=== PATIENT | female | born 1985 | race Caucasian/White ===

== ENCOUNTER → 2023-02-02 09:00 | Outpatient (BNVA) | payer BC, SELFPAY | PROVIDERS: Visit Provider Nurse Practitioner Women's Health | DX: Z12.4 Encounter for screening for malignant neoplasm of cervix (principal); N93.9 Abnormal uterine and vaginal bleeding, unspecified; Z01.419 Encounter for gynecological examination (general) (routine) without abnormal findings; N89.8 Other specified noninflammatory disorders of vagina | CPT/HCPCS: 83036; 84439; 84443; 85025; 87624 ==

== ENCOUNTER → 2023-02-10 12:13 | Outpatient (BNVA) | payer BC, SELFPAY | PROVIDERS: Visit Provider Nurse Practitioner Women's Health | DX: N93.9 Abnormal uterine and vaginal bleeding, unspecified (principal); D25.9 Leiomyoma of uterus, unspecified | CPT/HCPCS: 76830 ==

== ENCOUNTER → 2023-03-24 11:00 | Outpatient (BNVA) | payer BC, SELFPAY | PROVIDERS: Visit Provider Nurse Practitioner Women's Health | DX: N93.9 Abnormal uterine and vaginal bleeding, unspecified (principal) | CPT/HCPCS: 88305 ==

== ENCOUNTER 2023-07-22 12:44 | Outpatient (CLI) | payer BC, SELFPAY ==
--- NOTE | 2023-07-22 12:49 | MM_ITS ---
WS: [id number] BILATERAL 3D TOMOSYNTHESIS DIGITAL SCREENING MAMMOGRAPHY WITH CAD CLINICAL INFORMATION: Z12.31 - Encounter for screening mammogram for malignant ... HISTORY: Screening mammogram. No current complaints. COMPARISON: None. TECHNIQUE: Bilateral CC and MLO views. FINDINGS: The breasts are composed of heterogeneous nodular fibroglandular density tissue, which can limit the detection of small underlying mass lesions. No suspicious mass, asymmetry, calcifications, or archite ctural distortion. No evidence of malignancy. MM/[place] [id number] IMPRESSION: BI-RADS: 1-Negative FOLLOW UP: 1 Year Follow-up Recommend return to annual screening mammography.
== END 2023-07-22 12:45 | disposition home or self-care (01) ==
PROVIDERS: PCP Physician Assistant; Visit Provider Nurse Practitioner Women's Health
DX: Z12.31 Encounter for screening mammogram for malignant neoplasm of breast (principal)
CPT/HCPCS: 77063; 77067

== ENCOUNTER 2023-09-01 15:40 | Observation (INO) | payer BC, SELFPAY ==
--- NOTE | 2023-08-24 13:24 | P.ANESASSM_ITS ---
Pre-Anesthetic Assessment Height/Weight: Height 1.57 m Operation Date: 09/01/23 14:10 Proposed Procedures p Total Vaginal Hysterectomy 94830, 13400, N93.9, D25.9(Not Applicable) - Jhon Padilla MD s Sling Single Incision Sling(Not Applicable) - Jhon Padilla MD Familial anesthetic complications: none Was Beta Kolton taken within 24 hours: N/A Was Clonidine taken within 24 hours: N/A Social No alcohol and No tobacco Exam alert, oriented x 3, clear to auscultation bilaterally and regular rate & rhythm Airway Submandibular: within normal limits Cervical ROM: within normal limits Mallampati: Class II Dentition: chipped History/ROS No significant history except as noted GI Gastroesophageal Reflux Disease Anesthetic Plan ASA status: 2 Anesthesia: General Medications/Allergies Home Medications Medication Instructions Recorded Confirmed Last Taken Type estradiol 0.01% (0.1 mg/gram) 1 g vaginal .2-3 times weekly 02/02/23 08/24/23 08/17/23 Rx vaginal cream (Estrace) #42.5 grams levocetirizine 5 mg tablet (Xyzal) 5 mg PO DAILY PRN allergies 02/02/23 08/24/23 Unknown History omeprazole 40 mg capsule,delayed 40 mg PO DAILY 02/02/23 08/24/23 08/24/23 History release Allergies Allergy/AdvReac Type Severity Reaction Status Date / Time No Known Allergies Allergy Verified 08/24/23 08:43 [facility] Anesthesia Medical History Endometrial polyp causing AUB No pertinent past medical history neghx:htn,dm,thyroid,dvt/pe PCP: [facility] Surgical History H/O dilation and curettage (~2010) treatment of SAB with bleeding Uterine septum (~2009) Complete septum removed by laparosocopy-- cause of SABs. Repaired by Dr. Ambrosio at [facility] mechanical lead Umbilical hernia 2 different repairs Inguinal hernia as a child H/O tubal ligation History of hysteroscopy (~12/2019) benign polyp per patient. Performed by Dr. Renee [facility] Family History Father Hyperlipidemia Hypertension Mother Hyperlipidemia Hypertension Stroke Diabetes Grandmother Heart disease Maternal Thyroid disease Maternal Hypertension Maternal Grandfather Heart disease Maternal Denies family history of Colon cancer Ovarian cancer Breast cancer Uterine cancer Female Reproductive History Date of last menstrual period: 08/17/23 Data Anesthesia 08/24/23 13:11 08/24/23 13:11 Cardiac Studies: 2 No Data to Display
[2023-08-24 13:25] LABS: Add Urine Microscopic? NO; Charge for UA Resulting for Rev
[2023-08-24 13:28] LABS: Basophils % 0.8 %; Eosinophils % 0.6 %; Hematocrit 33.2 % (36-47); Lymphocytes % 39.1 %; Mean Corpuscular HGB Conc 30.7 g/dL (30-55); Mean Corpuscular Hemoglobin 23.5 pg (27-33); Mean Corpuscular Volume 76.5 fl (85-98); Mean Platelet Volume 9.3 fL (7.4-10.4); Monocytes # 0.4 10^3/uL (0.2-0.9); Monocytes % 7.5 %; Neutrophils # 2.67 10^3/uL (1.8-7.7); Neutrophils % 51.6 %; Nucleated Red Blood Cells % 0 %; Platelet Count 388 10^3/cmm (157-399); Red Blood Count 4.34 10^6/uL (3.85-5.65); Red Cell Distribution Width 15.3 % (12.1-15.1); White Blood Count 5.17 10^3/uL (3.29-11.43)
[2023-08-24 13:33] LABS: OR HCG Qualitative Urine Negative (Negative)
[2023-08-24 13:47] LABS: Bilirubin Urine Neg (Negative); Blood Urine Neg (Negative); Glucose Urine UA Norm (Normal); Ketones Urine Negative (Negative); Leukocyte Esterase Urine Negative (Negative); Nitrate Urine Negative (Negative); Protein Urine Neg (Negative); Specific Gravity, Urine 1.005 (1.005-1.030); Sulfosalicylic Acid Urine Negative (Negative); Urine Appearance Clear (CLEAR); Urine Color Yellow (Yellow); pH Urine 8 (5-7)
[2023-08-24 13:48] LABS: Urobilinogen Urine Neg (Negative)
[2023-08-24 13:54] LABS: Alanine Aminotransferase 15 U/L (0-33); Albumin Level 4.5 g/dL (3.5-5.2); Alkaline Phosphatase 55 U/L (35-105); Anion Gap 14.2 (5-19); Aspartate Amino Transferase 16 U/L (0-32); Blood Urea Nitrogen 6 mg/dL (6-20); Carbon Dioxide 23 mmol/L (22-29); Chloride 105 mmol/L (98-107); Globulin 2.8 g/dL (1.3-4.6); Glomerular Filtration Rate 110.7 mL/min (90-130); Glucose 101 mg/dL (65-115); Osmolality Calculated 286 mOsm/kg (285-295); Potassium 3.2 mmol/L (3.5-5.1); Sodium 139 mmol/L (136-145); Total Bilirubin 0.4 mg/dL (0.15-1.2); Total Protein 7.3 g/dL (6.6-8.7)
[2023-09-01] VITALS (17 sets, daily range): BP systolic 99–141; BP diastolic 59–91; PULSE 66–102; RESP 6–21; TEMP 36.4–36.8; O2SAT 97–100; BMI 29.2
[2023-09-01 12:29] LABS: OR HCG Qualitative Urine Negative (Negative)
--- NOTE | 2023-09-01 12:42 | P.ANESUD_ITS ---
Pre-Anesthetic Update Pre-Anesthetic Assessment: Date of Surgery/Procedure: 09/01/23 Preop Kaylen gnosis: Uterine fibroids, abnormal uterine bleeding, cystocele, stress urinary inco Proposed Procedure: Operation Date: 09/01/23 13:40 Proposed Procedures p Total Vaginal Hysterectomy 43628, 61947, N93.9, D25.9(Not Applicable) - Jhon Padilla MD s Sling Single Incision Sling(Not Applicable) - Jhon Padilla MD Any changes to Pre-Anesthetic Assessment?: No Last Intake: Intake Last Liquid Date 09/01/23 Last Liquid Time 08:00 Last Solid Date 08/31/23 Last Solid Time 19:00 Vitals: Temperature 97.8 F 09/01/23 12:21 Temperature Source Temporal Artery S can 09/01/23 12:21 Pulse Rate 92 09/01/23 12:21 Respiratory Rate 17 09/01/23 12:21 Blood Pressure 141/91 09/01/23 12:21 Blood Pressure Amy n 107 09/01/23 12:21 Oxygen Delivery Me thod Room Air 09/01/23 12:21 Cardiac Studies: No Data to Display
[2023-09-01] MEDS: sodium chloride 0.9% 500 ML IV (12:46)
[2023-09-01] MEDS: scopolamine 1.5 Patch 1 PATCH TRANSDERMA (12:49)
--- NOTE | 2023-09-01 12:56 | W.PM.OPSUD ---
Surgery/Procedure H&P Update DATE OF PROCEDURE: September 01, 2023 DATE H&P PERFORMED: 08/24/23 H&P UPDATE INFORMATION: I have reviewed H&P completed within last 30 days, I have examined patient prior to procedure and No changes to prior documentation PREOP DIAGNOSIS: Uterine fibroids, abnormal uterine bleeding, cystocele, stress urinary inco PLANNED PROCEDURE: Operation Date: 09/01/23 13:40 Proposed Procedures p Total Vaginal Hysterectomy 89051, 44051, N93.9, D25.9(Not Applicable) - Jhon Padilla MD s Sling Single Incision Sling(Not Applicable) - Jhon Padilla MD
[2023-09-01] MEDS: ceFOXitin 2,000 MG in sodium chloride 0.9% (plus) 50 ML 100 MG IV (13:03)
[2023-09-01] MEDS: sodium chloride 0.9% 1,000 ML 30 ML IV (13:13)
[2023-09-01] MEDS: lidocaine-epi 2% PF 1:200,000 20 mL SDV XX (14:50)
--- NOTE | 2023-09-01 15:38 | W.PM.BPON ---
Date of Procedure: 09/01/23 Surgeon: Jhon Padilla MD Graining Operator(s): Procedure(s) performed: Total vaginal hysterectomy, anterior colporrhaphy, mid urethral sling Findings of the procedure(s): Enlarged uterus Estimated blood loss: 250 mL Specimen(s) removed: Uterus Post-operative diagnosis: Status post TVH and anterior colporrhaphy, mid urethral sling and cystoscopy
--- NOTE | 2023-09-01 15:41 | P.OP_ITS ---
Operative Report Date of procedure: September 01, 2023 Pre-op diagnosis: Uterine fibroids Abnormal uterine bleeding Cystocele stage II Stress urinary incontinence Post-op diagnosis: same Procedure done: Total vaginal hysterectomy Anterior colporrhaphy Mid urethral sling Cystoscopy Implants: Coloplast Altis sling Specimens removed/disposition: Uterus Surgeon: Jhon Padilla MD Estimated blood loss (mL): 250 IV fluids (mL): 1,200 Urine output (mL): 100 Complications: None Procedure: After informed consent and risks, benefits, indications and alternatives reviewed with the patient was taken to the operating room. The patient was placed in dorsal lithotomy position prepped, and draped in the usual sterile fashion. The pre-procedure timeout verifying the correct patient, procedure, site and side, could not requirements was performed and acknowledge by the OR team. A Belrtán catheter was placed. A Bookwalter vaginal retractor was placed into the vagina in usual manner visualize the cervix. Cervix was grasped with a single tooth tenaculum and circumferentially infiltrated with 2% lidocaine with epinephrine. Then cervix was circumferentially incised with bovie and the bladder was dissected off the pubovesical cervical fascia anteriorly with a sponge stick and Metzenbaum scissors. The anterior peritoneal reflection was identified and the anterior cul-de-sac was entered sharply with Metzenbaum scissors. The same procedure was performed posteriorly and a posterior colpotomy was made through the posterior cul-de-sac space without difficulty and the posterior blade of the Bookwalter vaginal retractor was advanced posteriorly into the cul-de-sac. At this time, the left and right uterosacral ligaments were isolated and ligated with 0 Vicryl. The LigaSure device was placed over the uterosacral ligaments on either side and was then used in a serial fashion up through the cardinal ligaments bilaterally cross-clamped, cut, and sealed with the LigaSure device. Finally, the uterine arteries were cross-clamped, cut, sealed and ligated with the LigaSure device. Hemostasis was assured. The broad ligaments were then serially clamped, sealed and cut with the LigaSure device on both sides. Excellent hemostasis was visualized. Both cornua were clamped, sealed and cut with the LigaSure device. Then the pedicles were then suture ligated with excellent hemostasis. The uterus was excised and submitted for pathologic evaluation. No other abnormalities were noted in the pelvic cavity. The peritoneum was then closed in a pursestring fashion with 0 Vicryl suture. The vaginal cuff angles were closed with [id number] #0 Vicryl suture on both sides and transfixed with the ipsilateral cardinal and uterosacral ligaments. The remainder of the vaginal cuff was closed with #0 Vicryl in a running locked fashion. A vertical midline incision was made beneath the midurethra, nearly 1.5 cm length. Careful submucosal dissection was performed bilaterally up to the interior portion of the inferior pubic ramus. The insertion of adductor longus tendon on the patient?s pubic ramus was identified as reference land michael. Palpated the notch along the internal edge of ischiopubic ramus where the adductor longus tendon and the inferior pubic ramus meet. The Altis single inci jade sling (SIS) was selected. Then the needle of the SIS inserted aiming at the location of this notch. One of the integrated self-fixating tips place onto the needle by sliding it over the end of the needle. The needle/sling assembly was inserted toward the location of identified reference notch making sure that the flat of the handle is perpendicular to the desired path. The needle was tracked along the posterior surface of the ischiopubic ramus until the midline michael on the mesh is approximately at the midline position under the urethra. The needle was removed and the same was repeated on the contralateral side until the appropriate sling tension under the urethra was achieved ensuring that the mesh lays flat. The needle was removed and vaginal incision was closed in a running interlocking fashion with 2-0 Vicryl. The vaginal mucosa was then injected in the midline with normal saline. The vaginal mucosa was scored in the midline with the Bovie approximately 1 cm medial to the urethral meatus to 1 cm distal to the vaginal cuff. This vaginal mucosa was then undermined and then incised in the midline with the Metzenbaum scissors. The lateral aspects of the vaginal mucosa were then grasped with the Allis clamps and the vaginal mucosa was then dissected off the underlying fascia with the Metzenbaum scissors. Again, there was noted to be quite a bit of oozing at the incision, which was controlled with cautery. After adequate dissection was performed, bilaterally. Then Interrupted vertical mattress sutures of 0 Vicryl were used to elevate the cystocele superiorly. The excessive vaginal mucosa was then trimmed with the Metzenbaum scissors and the vaginal mucosa was then reapproximated in the running interlocking fashion with 2-0 Vicryl. Bludigo was given IV. At this time, instruments were removed from the vagina at hemostasis assured. Then the Beltrán catheter was removed and cystoscope was inserted. The bladder was filled with sterile water. Complete evaluation of the bladder mucosa was performed noting no lacerations, dimpling, tears, bleeding of the mucosa or muscular layers. Both ureteral orifices were identified. Prompt excretion of urine from both ureteral orifices was noted. Cystoscope was withdrawn. Beltrán catheter was then placed yielding clear zari urine. A vaginal packing with Premarin cream was placed and the patient was taken out of dorsal lithotomy position and awakened from the general anesthesia. The patient tolerated the procedure well and was taken to the PACU recovery room in a stable condition. Sponge, lap, needle and instruments counts were correct x3.
--- NOTE | 2023-09-01 16:23 | PC.NURSE ---
1624 - report called to Sherin Aguilar RN - notified RN of vaginal packing
[2023-09-01] MEDS: dextrose 5%-lactated ringers 1,000 ML 125 ML IV (17:05)
[2023-09-01] MEDS: docusate sodium 100 mg Capsule PO (17:05)
--- NOTE | 2023-09-01 18:06 | PC.NURSE ---
Pt desires meds to beds upon discharge.
--- NOTE | 2023-09-01 18:25 | ANE.PACU2 ---
Inpatient post-anesthesia follow up: Airway intact: Yes Vital signs: Temperature 97.6 F Pulse Rate 78 Respiratory Rate 16 Blood Pressure 104/66 Pulse Oximetry 97 Oxygen Delivery Me thod Room Air Oxygen Flow Rate 8 Fraction of Inspir ed Oxygen Hydration adequate: Yes Nausea and vomiting: No Pain level: 1 Mental status: Baseline
[2023-09-01] MEDS: HYDROcodone-acetaminophen 5-325 mg Tablet PO (18:26)
[2023-09-01] MEDS: ketorolac 30 mg/mL INJ IVP (18:27)
[2023-09-02] VITALS: BP 102/67; PULSE 98; RESP 16; TEMP 36.6; O2SAT 98
[2023-09-02] MEDS: HYDROcodone-acetaminophen 5-325 mg Tablet PO ×2 (00:06→11:17)
[2023-09-02] MEDS: ketorolac 30 mg/mL INJ IVP (00:07)
[2023-09-02 04:51] VITALS: BP 104/66; PULSE 78; RESP 16; TEMP 36.4; O2SAT 97
--- NOTE | 2023-09-02 05:21 | PC.NURSE ---
Vag packing removed on 09/01 @ 0500. Pt tolerated well.
[2023-09-02 05:31] LABS: Hematocrit 30.6 % (36-47); Mean Corpuscular HGB Conc 30.1 g/dL (30-55); Mean Corpuscular Hemoglobin 23.4 pg (27-33); Mean Corpuscular Volume 77.9 fl (85-98); Mean Platelet Volume 9.8 fL (7.4-10.4); Platelet Count 326 10^3/cmm (157-399); Red Blood Count 3.93 10^6/uL (3.85-5.65); Red Cell Distribution Width 15.1 % (12.1-15.1); White Blood Count 13.69 10^3/uL (3.29-11.43)
[2023-09-02 06:00] VITALS: BMI 29.2
--- NOTE | 2023-09-02 10:14 | PM.OBGYDC ---
Discharge Providers GRAVITY MANAGER Date of Admission: 09/01/23 15:40 Date of Discharge: 09/02/23 Attending Provider at Admission: Jhon Padilla MD Attending Provider at Discharge: Jhon Padilla MD Primary Care Provider: Luma Gramajo PA-C Reason for Visit Reason for Visit: D25.9, N85.2, N93.9 Hospital Course Hospital Course Mrs. garza 38-year-old female G2, P2 with a history of uterine fibroids, abnormal uterine bleeding, cystocele and stress incontinence. Admitted for planned total vaginal hysterectomy with anterior colporrhaphy and mid urethral sling. Procedures were performed without complication. Overnight observation was uneventful. She is afebrile hemodynamically stable postoperative day 1. PVR within normal limits. Tolerating diet well. Ambulating without difficulty. She was counseled regarding weight lifting restrictions of 10 pounds and pelvic rest for 6 weeks (no sex, no tampons, no vaginal douches). Return to the emergency room if any fever, increased bleeding or pain. Physical Exam Narrative: GA: Alert and oriented ?3. HEENT: WNL. Heart: Regular rate and rhythm. Lungs: Clear to auscultation bilaterally. Abdomen: Bowel sounds present, nontender, minimal tenderness, incision clean and dry, no redness, pain or edema. FOWL BLOOD TESTER: Spotting bleeding. Extremities: No edema, no cyanosis, no calves pain. Urinary Catheter Management: Beltrán: Cath Placed During This Visit: yes, but has since been removed by the nurse Reason for Continuing Indwelling Catheter: Decision to DC Catheter Urinary Catheter Date of Insertion: 09/01/23 Urinary Catheter Time of Insertion: 14:00 Date Urinary Catheter Removed: 09/02/23 Time Urinary Catheter Discontinued: 04:59 History History History 5 Term 2 0 Miscarriages/Ectopic 3 Living Children 2 Discharge Data Studies Completed and Pending Pending at discharge Category Date Time Status Pathology: Surgical [PTH] Routine Pth 09/01/23 15:04 Received Laboratory Results WBC 13.69 10^3/uL (3.29-11.43) H 09/02/23 04:56 RBC 3.93 10^6/uL (3.85-5.65) 09/02/23 04:56 Hgb 9.20 g/dL (11.27-16.99) L 09/02/23 04:56 Hct 30.6 % (36-47) L 09/02/23 04:56 MCV 77.9 fl (85-98) L 09/02/23 04:56 MCH 23.4 pg (27-33) L 09/02/23 04:56 MCHC 30.1 g/dL (30-55) 09/02/23 04:56 RDW 15.1 % (12.1-15.1) 09/02/23 04:56 Plt Count 326 10^3/cmm (157-399) 09/02/23 04:56 MPV 9.8 fL (7.4-10.4) 09/02/23 04:56 Neut % (Auto) 51.6 % 08/24/23 13:11 Lymph % (Auto) 39.1 % 08/24/23 13:11 [place] % (Auto) 7.5 % 08/24/23 13:11 Eos % (Auto) 0.6 % 08/24/23 13:11 Baso % (Auto) 0.8 % 08/24/23 13:11 Neut # (Auto) 2.67 10^3/uL (1.8-7.7) 08/24/23 13:11 Lymph # (Auto) 2.0 10^3/uL (0.8-4.8) 08/24/23 13:11 [place] # (Auto) 0.4 10^3/uL (0.2-0.9) 08/24/23 13:11 Eos # (Auto) 0.0 10^3/uL (0.0-0.8) 08/24/23 13:11 Baso # (Auto) 0.0 10^3/uL (0.0-0.1) 08/24/23 13:11 Nucleated RBC % (auto) 0 % 08/24/23 13:11 Nucleated RBCs # 0.0 /100WBC 08/24/23 13:11 Sodium 139 mmol/L (136-145) 08/24/23 13:11 Potassium 3.2 mmol/L (3.5-5.1) L 08/24/23 13:11 Chloride 105 mmol/L (98-107) 08/24/23 13:11 Carbon Dioxide 23 mmol/L (22-29) 08/24/23 13:11 Anion Gap 14.2 (5-19) 08/24/23 13:11 BUN 6 mg/dL (6-20) 08/24/23 13:11 Creatinine 0.6 mg/dL (0.5-0.9) 08/24/23 13:11 GFR Calculation 110.7 mL/min (90-130) 08/24/23 13:11 Glucose 101 mg/dL (65-115) 08/24/23 13:11 Calculated Osmolality 286 mOsm/kg (285-295) 08/24/23 13:11 Calcium 9.0 mg/dL (8.5-10.5) 08/24/23 13:11 Total Bilirubin 0.4 mg/dL (0.15-1.2) 08/24/23 13:11 AST 16 U/L (0-32) 08/24/23 13:11 ALT 15 U/L (0-33) 08/24/23 13:11 Alkaline Phosphatase 55 U/L (35-105) 08/24/23 13:11 Total Protein 7.3 g/dL (6.6-8.7) 08/24/23 13:11 Albumin 4.5 g/dL (3.5-5.2) 08/24/23 13:11 Globulin 2.8 g/dL (1.3-4.6) 08/24/23 13:11 Urine Color Yellow (Yellow) 08/24/23 13:00 Urine Appearance Clear (CLEAR) 08/24/23 13:00 Urine pH 8 (5-7) H 08/24/23 13:00 Ur Specific [place] 1.005 (1.005-1.030) 08/24/23 13:00 Urine Protein Neg (Negative) 08/24/23 13:00 Urine Glucose (UA) Norm (Normal) 08/24/23 13:00 Urine Ketones Negative (Negative) 08/24/23 13:00 Urine Blood Neg (Negative) 08/24/23 13:00 Urine Nitrate Negative (Negative) 08/24/23 13:00 Urine Bilirubin Neg (Negative) 08/24/23 13:00 Prot Sulfosalicylic Acd Negative (Negative) 08/24/23 13:00 Urine Urobilinogen Neg mg/dL (Negative) 08/24/23 13:00 Ur Leukocyte Esterase Negative (Negative) 08/24/23 13:00 Urine HCG, Qual Negative (Negative) 09/01/23 12:11 Blood Type O Positive 09/01/23 12:40 Rho(D) Type Rh positive 09/01/23 12:40 Antibody Screen Negative 09/01/23 12:40 Vitals Last Vital Signs Temp 97.6 F 09/02/23 04:51 Pulse 78 09/02/23 04:51 Resp 16 09/02/23 04:51 BP 104/66 09/02/23 04:51 Pulse Ox 97 09/02/23 04:51 O2 Del Method Room Air 09/02/23 04:51 O2 Flow Rate 8 09/01/23 16:05 Results Labs OB ([facility]): Blood Type O Positive 09/01/23 Antibody Screen Negative 09/01/23 Hct 30.6 % (36-47) L 09/02/23 Hgb 9.20 g/dL (11.27-16.99) L 09/02/23 Rho(D) Type Rh positive 09/01/23 Plt Count 326 10^3/cmm (157-399) 09/02/23 TSH 2.20 uIU/mL (0.27-4.20) 02/02/23 Free T4 1.17 ng/dL (0.82-1.77) 02/02/23 Hemoglobin A1c 5.3 % (4.0-6.0) 02/02/23 Pap Smear Interpret See note 02/02/23 Discharge Plan Discharge Patient Disposition: Home Condition: Stable Prescriptions: New acetaminophen 325 mg capsule 325 mg PO Q4H PRN (Reason: fever or pain) Qty: 60 0RF ibuprofen 800 mg tablet 800 mg PO TID PRN (Reason: pain) Qty: 60 0RF hydrocodone-acetaminophen 5-325 mg tablet 1 tab PO Q4H PRN (Reason: pain) Qty: 30 0RF Iron (ferrous sulfate) 325 mg (65 mg iron) tablet 325 mg PO BID Qty: 60 0RF Colace 100 mg capsule 100 mg PO BID Qty: 30 0RF Continued omeprazole 40 mg capsule,delayed release(DR/EC) 40 mg PO DAILY levocetirizine [Xyzal] 5 mg tablet 5 mg PO DAILY PRN (Reason: allergies) estradiol [Estrace] 0.01 % (0.1 mg/gram) cream 1 g vaginal .2-3 times weekly Qty: 42.5 3RF Rx Instructions: space out doses Discharge Orders: Discharge Order (Routine); Ordered 09/02/23 Ordered By: Jhon Padilla Referrals: Jhon Padilla MD [Physician] - 10/19/23 3:45 pm Minal Verdugo APN, WHNP [Nurse Practitioner] - 09/23/23 10:45 am Discharge Diet: Usual diet Discharge Activity: Limit activity as instructed Patient Instructions: Cystoscopy (GEN), Bladder Sling for Women (GEN), Vaginal Hysterectomy (GEN), Anterior Vaginal Repair (GEN), OB Food/Drug Interaction Guide, Opioid Safety Activity Restrictions/Additional Instructions: 1. Please call [facility] on next working day to make your post-operative appointment in 2 weeks. 2. Please stay home until you come back to the clinic on first post-hospatilization check up. 3. Please follow instructions on your medications CAREFULLY. 4. If you have abdominal incision, do not cover it unless dressing is necessary because of drainage. OK to shower, but avoid bath. Leave steri-strips until they fall off. If they are still on one week after surgery, you may remove them. 5. If you had vaginal surgery or vaginal repair, Dr. Padilla may instruct you to take SITZ bath. 6. Yellow, blood tinged odorous vaginal discharge is usually normal after hysterectomy or vaginal surgeries. 7. No SEXUAL INTERCOURSE, tampons, or douches until you are completely released from the post-operative care. 8. Avoid constipation by eating right and maybe using some Metamucil or Milk of Magnesia. 9. All prescription refills are given during the working hours. Please do no wait till it runs out. Call the clinic at [phone] before your medication runs out. The clinic will get in touch with your doctor to prescribe medications if necessary. 10. Please remain within 40 mile radius from our hospital because emergencies do happen now and then during the post-operative period. 11. If you have stairs at home, take one step at a time slowly and minimize the number of trips. It helps to stay in one floor for the next few days. No lifting except what you can lift by one hand until you are released from the post-operative care. 12. Driving is discouraged until you are well healed. It may be 3-4 weeks before you feel strong enough to drive. You should be able to turn and look through the rear window without pain and you should be able to push the brake pedal very hard without pain before you drive. No fast rules, but SAFETY should be your primary concern. DO NOT drive if you are on sedating medications such as narcotics. 13. Call the clinic (during working hours) to make urgent appointment or go to the Emergency room, if any of the following occurs: i. Vaginal bleeding becomes heavy, more than a period. ii. Incision becomes red and sore, or drains pus. iii. Your TEMPERATURE is over 100.4F or you have chill. iv. IV site becomes red and swollen (a little ``knot?? is usually OK) v. Persistent nausea and vomiting vi. Persistent constipation or diarrhea vii. Rash or allergic reaction to medications. Discharge Attestations GRAVITY MANAGER Time Spent in Discharge Care*: greater than 30 min Coding Level of Care Code Acute Code for Chg Pavan
[2023-09-02] MEDS: ibuprofen 800 mg tablet PO (11:17)
[2023-09-02] MEDS: docusate sodium 100 mg Capsule PO (11:18)
[2023-09-02 11:25] VITALS: BP 122/73; PULSE 102; RESP 16; TEMP 36.8
== END 2023-09-02 11:44 | disposition home or self-care (01) ==
LOC: OBGYN 15:44
PROVIDERS: Admitting Provider Obstetrics & Gynecology; PCP Physician Assistant; Visit Provider Obstetrics & Gynecology
PROC: (CPT 57240; principal; 2023-09-01 13:20)
PROC: (CPT 57288; 2023-09-01 13:20)
DX: N81.10 Cystocele, unspecified (principal); N39.3 Stress incontinence (female) (male); N93.9 Abnormal uterine and vaginal bleeding, unspecified; D25.9 Leiomyoma of uterus, unspecified; K21.9 Gastro-esophageal reflux disease without esophagitis
CPT/HCPCS: 57240; 57288; 58260; 36415; 51798; 80053; 81003; 81025; 85025; 85027; 86850; 86900; 88307; 96374; 96376; C1713; G0378; J0694; J1100; J1200; J1885; J2250; J2405; J2704; J2710; J3010; J3490; J7030; J7040; J7121